=== PATIENT | female | born 1935 | race Caucasian/White ===

== ENCOUNTER → 2019-08-24 | Outpatient (CLI) | payer MEDICARE, BC ==
--- NOTE | 2019-08-25 10:06 | RAD ---
PROCEDURE: KNEE BILAT 3V STUDY DATE: 08/24/2019 CLINICAL INDICATION / HISTORY: Bilateral knee pain. TECHNIQUE: AP, lateral, and oblique views of the left and right knees. COMPARISON: None currently available FINDINGS: Right knee: Generalized demineralization. No fracture or malalignment. No aggressive osseous lesions. Minimal medial femoral condyle osteophytic spurring. Intra-articular cartilage irregularity on the patella surface. Slight articular surface irregularity on the posterior weightbearing surface of the lateral femoral condyle. Medial and lateral meniscal chondrocalcinosis. No joint effusion. Arterial calcifications in the distal femoral and in the popliteal arteries. Surgical clips in the posterior right knee soft tissues. Left knee: Generalized demineralization. No fracture or demineralization. No aggressive appearing osseous lesions. There is scalloping of the articular surface of the patella noted on the lateral view. Soft tissues show chondrocalcinosis of the medial and lateral menisci, calcifications in the left lower extremity arteries, and surgical clips projecting over the popliteal fossa and upper posterior left calf. No joint effusion. IMPRESSION: Bilateral degenerative change most conspicuous in the patellofemoral compartment in the left knee and in the lateral and patellofemoral compartments in the right knee as shown by plain film. No fracture or aggressive appearing osseous lesions. Bilateral severe meniscal degenerative change is also shown. Electronically signed by: Hasmukh Salazar MD (08/25/2019 10:03 AM) [id number]
== END ==
LOC: PMG 16:59
PROVIDERS: ATTEND Family Medicine
DX: M17.0 Bilateral primary osteoarthritis of knee (principal); M11.262 Other chondrocalcinosis, left knee; M11.261 Other chondrocalcinosis, right knee
CPT/HCPCS: 73562

== ENCOUNTER → 2020-08-19 | Outpatient (CLI) | payer MEDICARE, BC ==
--- NOTE | 2020-08-19 17:26 | RAD ---
EXAM: Head CT without contrast. HISTORY: Headaches. TECHNIQUE: Computed tomographic images of the head were obtained without contrast. *One or more of the following individualized dose reduction techniques were utilized for this examina tion: 1. Automated exposure control. 2. Adjustment of the mA and/or kV according to patient size. 3. Use of iterative reconstruction technique. COMPARISON: None. FINDINGS: There is no acute or subacute extra-axial or intraparenchymal hemorrhage. There is no mass effect or midline shift. There is no hydrocephalus. There are areas of decreased attenuation within the cerebral white matter, nonspecific and likely rel ated to chronic small vessel disease. There is cerebral volume loss. There is evidence of lens surgery. 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 The mastoid air cells are clear . The visualized paranasal sinuses are clear. There is no suspicious calvarial lesion. IMPRESSION: 1. Bilateral cerebral white matter changes, most commonly due to chronic small vessel disease in roberto ents of this age. 2. Cerebral volume loss. Electronically signed by: Kenia Ayala MD (08/19/2020 5:24 PM) [id number]
== END ==
LOC: PMG 16:38
PROVIDERS: ATTEND Family Medicine
DX: I73.89 Other specified peripheral vascular diseases (principal); R90.82 White matter disease, unspecified; H18.429 Band keratopathy, unspecified eye
CPT/HCPCS: 70450